=== PATIENT | female | born 1950 | race African-American/Black ===

== ENCOUNTER 2016-12-26 04:39 | Emergency (ER) | payer MEDICAID, OTHER ==
[~2016-12-26] VITALS: Ht 160 cm; Wt 80.0 kg
[2016-12-26] MEDS ORDERED: KETOROLAC 30MG/ML VIAL IV ONE (06:30)
[2016-12-26] MEDS ORDERED: MORPHINE SULFATE 4 MG/ML CPJ (NOT FOR IM USE) IV ONE (06:30)
[2016-12-26] MEDS ORDERED: HYDROCODONE/ACETAMINOPHEN 5/325MG TABLET PO ONE (10:45)
[2016-12-26 10:50] VITALS: BP 174/74
== END 2016-12-26 11:04 | disposition home or self-care (01) ==
LOC: ER 05:02
DX: M25.561 Pain in right knee (principal); E11.9 Type 2 diabetes mellitus without complications; I10 Essential (primary) hypertension; M19.90 Unspecified osteoarthritis, unspecified site; F17.200 Nicotine dependence, unspecified, uncomplicated; Z96.651 Presence of right artificial knee joint; Z88.8 Allergy status to other drugs, medicaments and biological substances
CPT/HCPCS: 73562; 93971; 96374; 96375; 99284; J1885; J2270; L1830